=== PATIENT | male | born 1950 | race Caucasian/White ===

== ENCOUNTER 2017-03-20 06:44 | Observation (INO) | payer OTHER ==
[~2017-03-20] VITALS: Ht 180.3 cm; Wt 90.7 kg
[~2017-03-20 06:44] MED LIST: MIDAZOLAM DRIP 100 mg/100mL NS 100 ML IV ONE; MIDAZOLAM HCL 5 MG/ML-1ML VIAL ONE
[2017-03-20] MEDS ORDERED: MIDAZOLAM DRIP 100 mg/100mL NS 100 ML IV SCH (06:49)
[2017-03-20] MEDS ORDERED: SODIUM CHLORIDE 0.9% 1,000 ML IV ONE (06:52)
[2017-03-20] MEDS ORDERED: MIDAZOLAM HCL 5 MG/ML-1ML VIAL IV ONE (07:00)
[2017-03-20 07:29] LABS: Basophils # (auto) 0 uL; Basophils % (auto) 0.3 % (0.0-2.0); Eosinophils # (auto) 0.3 uL; Eosinophils % (auto) 2.8 % (0.0-7.0); Hematocrit 42.8 % (41.0-53.0); Lymphocytes # (auto) 2.5 uL; Lymphocytes % (auto) 22.2 % (10.0-50.0); Mean Corpuscular Hemoglobin 28.9 pg (28.0-32.0); Mean Corpuscular Hgb Conc. 32.7 g/dL (32.0-36.0); Mean Corpuscular Volume 88.3 fL (80.0-100.0); Mean Platelet Volume 11.2 fL (7.4-10.4); Monocytes # (auto) 0.7 uL; Monocytes % (auto) 6.3 % (0.0-12.0); Neutrophils # (auto) 7.7 uL; Neutrophils % (auto) 68.4 % (37.0-80.0); Platelet Count (auto) 256 10^3/uL (140-450); White Blood Cell 11.3 10^3/uL (4.4-10.8)
[2017-03-20 07:39] LABS: INR 1.09 (0.9-1.15); Partial Thromboplastin Time 32.3 sec (22.64-33.71); Prothrombin Time 11.8 sec (9.37-12.3)
[2017-03-20 07:46] LABS: Lactic Acid w/Reflex 2.1 mmol/L (0.4-2.0)
[2017-03-20 07:47] LABS: Albumin 3.8 g/dL (3.4-5.0); Calcium 8.5 mg/dL (8.5-10.1); Potassium 3.8 mmol/L (3.5-5.1)
[2017-03-20 07:49] LABS: BUN/Creatinine Ratio 30.9
[2017-03-20 07:54] LABS: Bilirubin, Total 0.7 mg/dL (0.2-1.0); Total Protein 7.1 g/dL (6.4-8.2)
[2017-03-20 08:01] LABS: Urine Bilirubin Negative (Negative); Urine Blood TRACE /uL (Negative); Urine Color Yellow (Yellow); Urine Glucose Normal (Normal); Urine Hyaline Cast FEW /lpf (0 - 2); Urine Ketone Negative (Negative); Urine Mucus FEW (None Seen); Urine Nitrite Negative (Negative); Urine RBC <1 /hpf (0 - 3); Urine Urobilinogen Normal (Negative); Urine pH 5.5 (5.0-8.0)
[2017-03-20 08:08] LABS: Magnesium 2.4 mg/dL (1.6-2.6)
[2017-03-20 08:17] LABS: REFLEX LACTIC ACID YES OR NO YES
[2017-03-20] MEDS ORDERED: ALL100T PO (08:23)
[2017-03-20] MEDS ORDERED: TADA5TAB11 PO (08:23)
[2017-03-20] MEDS ORDERED: LOSA25TA9 PO (08:23)
[2017-03-20] MEDS ORDERED: METF-316 PO (08:23)
[2017-03-20] MEDS ORDERED: ATOR1TAB PO (08:23)
[2017-03-20] MEDS ORDERED: SERT-160 PO (08:23)
[2017-03-20] MEDS ORDERED: METO-169 PO (08:23)
[2017-03-20] MEDS ORDERED: POTA1TAB64 PO (08:23)
[2017-03-20] MEDS ORDERED: ASPI81CH43 PO (08:23)
[2017-03-20] MEDS ORDERED: DABI150C PO (08:23)
[2017-03-20] MEDS ORDERED: HCTZ25T PO (08:23)
[2017-03-20] MEDS ORDERED: PATIENTS OWN MEDICATION IV STA ×2 (10:03)
[2017-03-20] MEDS ORDERED: IDARUCIZUMAB 2.5 GM/50 ML VIAL IV ONE (10:15)
[2017-03-20] MEDS ORDERED: TRAM-297 PO (10:18)
[2017-03-20] MEDS ORDERED: ADAL40KI2 SC (10:19)
[2017-03-20] MEDS ORDERED: FURO20TA PO (10:20)
[2017-03-20 11:02] VITALS: BP 196/53
== END 2017-03-20 11:54 | disposition short-term general hospital (02) | DRG 193 ==
LOC: EDBD 06:44 → ER 06:44 → OVERFLOW 06:58 → ER 11:54
PROVIDERS: ADMIT Emergency Medicine; ATTEND Emergency Medicine
DX: J18.9 Pneumonia, unspecified organism (principal); I61.9 Nontraumatic intracerebral hemorrhage, unspecified; I50.9 Heart failure, unspecified; I11.0 Hypertensive heart disease with heart failure; E11.9 Type 2 diabetes mellitus without complications; M10.9 Gout, unspecified; E78.5 Hyperlipidemia, unspecified
CPT/HCPCS: 36415; 36600; 70450; 71010; 80053; 80307; 80320; 81001; 82805; 83605; 83735; 83880; 84443; 84484; 85025; 85610; 85730; 87040; 87070; 87205; 93005; 94002; 96365; 96366; 96375; 99291; G0378; J2250; J7030